=== PATIENT | male | born 1955 | race Caucasian/White ===

== ENCOUNTER 2020-12-05 12:51 | Emergency (ER) | payer MEDICARE, OTHER ==
[~2020-12-05] VITALS: Ht 182.9 cm; Wt 113.4 kg
[~2020-12-05 12:51] MED LIST: ASPIRIN EC81 M1 PO; BACTRIM DS TAB1 EACH PO; BACTROBAN22 GM TP; BENAZEPRIL HCL5 MG PO; BUMETANIDE 1 MG1 M1 PO; CEFDINIR300 MG PO; CEPHALEXIN 500500 M3 PO; COREG6.25 MG PO; COUMADIN 5 MG TA5 M1 PO; IBUPROFEN200 M2 PO; KEFLEX500 MG PO; LASIX 20 MG TAB20 MG PO; LASIX 40 MG TAB40 M1 GT; LEVAQUIN 500 M500 M2 PO; LIPITOR20 MG PO; LISINOPRIL10 MG PO; NORCO 7.5-3251 EACH PO; OMNICEF; PERCOCET 5-3251 EACH PO; POLYMYXIN B/TMP10 ML OPHTHALMIC; PREDNISONE 10 M10 M1 PO; PROVENTIL HFA6.7 G1 INH; TOBRASOL5 ML OP; VICODIN 5-5001 EACH PO; ZOCOR40 MG PO
[2020-12-05] MEDS ORDERED: POLYMYXIN B/TMP10 ML OPHTHALMIC (14:03)
[2020-12-05 14:09] VITALS: BP 154/72
== END 2020-12-05 14:10 | disposition home or self-care (01) ==
LOC: M.ERS 12:51
DX: T15.11XA Foreign body in conjunctival sac, right eye, initial encounter (principal); I10 Essential (primary) hypertension; I48.91 Unspecified atrial fibrillation; E78.00 Pure hypercholesterolemia, unspecified; Z98.890 Other specified postprocedural states; Z85.828 Personal history of other malignant neoplasm of skin; Z79.899 Other long term (current) drug therapy; Z88.0 Allergy status to penicillin; X58.XXXA Exposure to other specified factors, initial encounter; Y93.89 Activity, other specified; Y92.89 Other specified places as the place of occurrence of the external cause; Y99.8 Other external cause status

== ENCOUNTER 2021-02-26 16:00 | Emergency (ER) | payer MEDICARE, OTHER ==
[~2021-02-26] VITALS: Ht 182.9 cm; Wt 113.0 kg
[2021-02-26] MEDS ORDERED: TRAMADOL 50 MG50 MG PO (18:22)
[2021-02-26 18:38] VITALS: BP 136/79
== END 2021-02-26 18:40 | disposition home or self-care (01) ==
LOC: M.ERS 16:00
DX: M54.50 Low back pain, unspecified (principal); I10 Essential (primary) hypertension; E78.00 Pure hypercholesterolemia, unspecified; Z79.899 Other long term (current) drug therapy; Z88.0 Allergy status to penicillin